=== PATIENT | male | born 1955 | race Caucasian/White ===

== ENCOUNTER 2017-05-28 17:52 | Inpatient (IN) | payer BC ==
[~2017-05-28] VITALS: Ht 182.9 cm; Wt 130.6 kg
[2017-05-28] MEDS ORDERED: HYDROCODONE/APAP 5/325MG 1 EACH TABLET ONE (19:45)
[2017-05-28] MEDS ORDERED: IBUPROFEN 600 MG TABLET PO ONE ×2 (19:46→20:00)
[2017-05-28] MEDS ORDERED: HYDROCODONE/APAP 5/325MG 1 EACH TABLET PO ONE (20:00)
[2017-05-28] MEDS ORDERED: LIDOCAINE 2%-EPI 1:100,000 30 ML VIAL TP ONE (20:00)
[2017-05-28] MEDS ORDERED: LIDOCAINE 1%-EPI 1:100,000 50 ML VIAL IJ ONE (20:11)
--- NOTE | 2017-05-28 20:30 | NUR ---
61 YO MALE, C/O RIGHT KNEE PAIN /P GLF. PT STATES HIS KNEES ANKLE GAVE OUT, WHERE HE FELL ON HIS KNEE. PT ASSISTED TO ER BED, SKIN WARMA ND DRY, RR EVEN AND UNLABORED. AWAITING ORDERS FROM PROVIDER
--- NOTE | 2017-05-28 20:35 | NUR ---
RADIOLOGY TEAM AT BED SIDE FOR EVAL
--- NOTE | 2017-05-28 20:37 | NUR ---
CALLED [employer] MANCILLA, PUBLIC HEALTH AIDE WAS PAGED.
--- NOTE | 2017-05-28 21:24 | NUR ---
PATIENT WILL BE ADMITTED INTO ROOM 307-1.
[2017-05-28] MEDS ORDERED: CEFAZOLIN 1 GM ONE (21:39)
[2017-05-28 21:40] VITALS: BP 155/90
[2017-05-28 21:43] LABS: BASOPHILS # (AUTO) 0.1 /CMM (0.0-0.2); BASOPHILS % (AUTO) 0.6 % (0.0-2.0); EOSINOPHILS # (AUTO) 0.2 /CMM (0.0-0.7); EOSINOPHILS % (AUTO) 1.3 % (0.0-6.0); HEMATOCRIT 47 % (39-51); HEMOGLOBIN 16.2 g/dL (13.5-17.5); LYMPHOCYTES # (AUTO) 3.3 /CMM (0.8-4.8); LYMPHOCYTES % (AUTO) 22.3 % (20.0-44.0); MEAN CORPUSCULAR HEMOGLOBIN 31 PG (26.0-33.0); MEAN CORPUSCULAR HGB CONC 34 g/dl (31.0-36.0); MEAN CORPUSCULAR VOLUME 89 fL (80-96); MONOCYTES # (AUTO) 1.1 /CMM (0.1-1.30); MONOCYTES % (AUTO) 7.4 % (2.0-12.0); NEUTROPHILS # (AUTO) 10.1 /CMM (1.8-8.9); NEUTROPHILS % (AUTO) 68.4 % (43.0-81.0); PLATELET COUNT (AUTO) 289 /CMM (150-450); RDW COEFFICIENT OF VARIATION 12.6 (11.5-15.0); RED BLOOD CELL COUNT(AUTO) 5.29 MIL/uL (4.5-6.0); WHITE BLOOD COUNT (AUTO) 14.8 K/uL (4.3-11.0)
--- NOTE | 2017-05-28 21:44 | NUR ---
CALLED [employer], NUCLEAR CONTROL OPERATOR WAS PAGED.
--- NOTE | 2017-05-28 21:52 | NUR ---
REPORT GIVEN TO ESMER MENDEZ FOR CONTINUATION OF CARE.
[2017-05-28 21:53] LABS: CALCIUM, SERUM 8.7 mg/dL (8.5-10.1); CREATININE 1.2 mg/dL (0.6-1.3); POTASSIUM 4.2 mmol/L (3.5-5.1)
[2017-05-28 21:58] LABS: INR 0.94 (0.87-1.13); PROTHROMBIN TIME 9.8 SECS (9.5-12.7)
[2017-05-28 21:59] LABS: ALBUMIN 4.1 g/dL (3.4-5.0); BILIRUBIN,DIRECT 0.2 mg/dL (0.0-0.2); BILIRUBIN,TOTAL 0.8 mg/dL (0.2-1.0); TOTAL PROTEIN, SERUM 6.9 g/dL (6.4-8.2)
[2017-05-28] MEDS ORDERED: IV NS 0.9% 1,000 ML BAG IV ONE (22:00)
[2017-05-28] MEDS ORDERED: CEFAZOLIN 1 GM in IV D5W 50 ML IV ONE (22:00)
[2017-05-28] MEDS ORDERED: IV NS 0.9% 1,000 ML IV PRN (22:13)
--- NOTE | 2017-05-28 22:24 | NUR ---
PT TRANSFERED TO VIA [facility]
[2017-05-28] MEDS ORDERED: Z GUARD REMEDY 2 OZ OINT TP PRN (22:30)
[2017-05-28] MEDS ORDERED: HYDROCODONE/APAP 5/325MG 1 EACH TABLET PO PRN (22:30)
[2017-05-28] MEDS ORDERED: MAG HYDROX/AL HYDROX/SIMETH 30 ML UDC PO PRN (22:30)
[2017-05-28] MEDS ORDERED: MAGNESIUM HYDROXIDE 30 ML UDC PO PRN (22:30)
[2017-05-28] MEDS ORDERED: ONDANSETRON HCL/PF 4 MG/2 ML VIAL IVP PRN (22:30)
[2017-05-28] MEDS ORDERED: ACETAMINOPHEN 325 MG TABLET PO PRN (22:30)
--- NOTE | 2017-05-28 22:30 | NUR ---
RN MS ADMIT PT ARRIVED ON UNIT, AAOX4 - NO C/O ANY PAIN OR DISCOMFORT. BREATHING NON-LABORED AND EVEN. R LEG IS SPLINTED WITH BANDAGE - NO SIGNS OF BLEEDING. IV INTACT AND PATENT. ORIENTATED TO UNIT AND CALL LIGHT SYSTEM. WILL MONITOR. PER E.R. REPORT DR FLOWERS IS ON THE CASE
[2017-05-29] MEDS ORDERED: HYDROCODONE/APAP 5/325MG 1 EACH TABLET ONE (00:53)
[2017-05-29] MEDS ORDERED: CEFAZOLIN 1 GM ONE (04:52)
[2017-05-29] MEDS: CEFAZOLIN 1 GM in IV D5W 50 ML IV SCH ×3 (05:12→20:49)
--- NOTE | 2017-05-29 06:43 | NUR ---
RN NOTE NO SIGNFICANT CHANGES OVERNIGHT. PT AAOX4, PT RESTING COMFORTABLY IN BED WITH EYES CLOSED. NO S/S OF ANY DISTRESS AT THIS TIME. R LEG SPLINTED WITH BANDAGE - NO BLEEDING NOTED. TOLERATING IV FLUISD WELL. CALL LIGJHT I NREACH. WILL ENDORSE TO DAY SHIFT FOR SELINA.
[2017-05-29 07:07] LABS: BASOPHILS # (AUTO) 0.1 /CMM (0.0-0.2); BASOPHILS % (AUTO) 0.8 % (0.0-2.0); EOSINOPHILS # (AUTO) 0.3 /CMM (0.0-0.7); EOSINOPHILS % (AUTO) 3.2 % (0.0-6.0); HEMATOCRIT 41 % (39-51); HEMOGLOBIN 14.3 g/dL (13.5-17.5); LYMPHOCYTES # (AUTO) 2.5 /CMM (0.8-4.8); LYMPHOCYTES % (AUTO) 26.7 % (20.0-44.0); MEAN CORPUSCULAR HEMOGLOBIN 31 PG (26.0-33.0); MEAN CORPUSCULAR HGB CONC 35 g/dl (31.0-36.0); MEAN CORPUSCULAR VOLUME 89 fL (80-96); MONOCYTES # (AUTO) 1.1 /CMM (0.1-1.30); MONOCYTES % (AUTO) 11.4 % (2.0-12.0); NEUTROPHILS # (AUTO) 5.4 /CMM (1.8-8.9); NEUTROPHILS % (AUTO) 57.9 % (43.0-81.0); PLATELET COUNT (AUTO) 247 /CMM (150-450); RDW COEFFICIENT OF VARIATION 13.5 (11.5-15.0); RED BLOOD CELL COUNT(AUTO) 4.64 MIL/uL (4.5-6.0); WHITE BLOOD COUNT (AUTO) 9.3 K/uL (4.3-11.0)
[2017-05-29 07:36] LABS: CALCIUM, SERUM 8.2 mg/dL (8.5-10.1); CREATININE 1.2 mg/dL (0.6-1.3); MAGNESIUM 2.1 mg/dL (1.8-2.4); PHOSPHORUS 3.2 mg/dL (2.5-4.9); POTASSIUM 4.6 mmol/L (3.5-5.1)
[2017-05-29 08:00] VITALS: BP 130/78
--- NOTE | 2017-05-29 08:00 | NUR ---
MS RN NOTES PATIENT RESTING IN BED, AWAKE. NO DISCOMFORT OR DISTRESS NOTED. IV LINE ON RFA INTACT PATENT. BED IN LOW LOCKED POSITION. CALL LIGHT WITHIN REACH. MONITORING CLOSELY.
[2017-05-29] MEDS: PANTOPRAZOLE 40 MG TABLET.DR PO SCH (08:02)
[2017-05-29] MEDS ORDERED: hydrALAZINE HCL 25 MG TABLET PO PRN (08:30)
[2017-05-29] MEDS: HYDROCODONE/APAP 5/325MG 1 EACH TABLET PO PRN ×3 (08:50→20:49)
--- NOTE | 2017-05-29 10:30 | NUR ---
MS RN NOTES PATIENT LAYING IN BED, C/O PAIN TO RIGHT LEG, PRN NORCO ADMINISTERED & WAS EFFECTIVE. ALL NEEDS MET. MONITORING CLOSELY FOR ANY CHANGE OF CONDITION.
[2017-05-29 10:53] LABS: THYROID STIMULATING HORMONE 2.655 uIU/mL (0.358-3.74)
[2017-05-29] MEDS: VALSARTAN 80 MG TABLET PO SCH (11:41)
--- NOTE | 2017-05-29 14:30 | NUR ---
MS RN NOTES PATIENT RESTING IN BED WITH EYES CLOSED. NO C/O PAIN NOTED. OBSERVING CLOSELY
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
[2017-05-29 16:00] VITALS: BP 136/79
--- NOTE | 2017-05-29 18:45 | NUR ---
MS RN NOTES PATIENT RESTING IN BED, NO C/O PAIN, NO DISTRESS OR DISCOMFORT NOTED. IV LINE ON RFA 20 GAUZE SALINE LOCK, INTACT & PATENT. ALL ORDERED MEDICINES ADMINISTERED PER MD ORDERS. ALL NEEDS MET. CALL LIGHT WITHIN REACH. BED IN LOW LOCKED POSITION. SON AT BEDSIDE AT THIS TIME.WILL ENDORSE TO PM SHIFT.
--- NOTE | 2017-05-29 19:00 | NUR ---
RN MS NOTES RECEIVED PT IN BED, A/O X 4, PATIENT NOT IN ACUTE DISTRESS, IV SITE INTACT NO S/S OF INFILTRATION. CALL LIGHT WITHIN REACH. SAFETY MEASURES IN PLACE, ON LOW BED, WILL CONTINUE TO MONITOR PT.
[2017-05-29 20:00] VITALS: BP 133/76
[2017-05-29 20:04] VITALS: BP 133/76
[2017-05-29] MEDS: ZOLPIDEM TARTRATE 5 MG TABLET PO PRN (20:49)
[2017-05-30] VITALS (9 sets, daily range): BP systolic 128–159; BP diastolic 68–97
[2017-05-30] MEDS: CEFAZOLIN 1 GM in IV D5W 50 ML IV SCH ×3 (04:33→21:42)
--- NOTE | 2017-05-30 06:44 | NUR ---
MS RN CLOSING NOTES PATIENT COMFORTABLY ASLEEP AND EASILY AWAKEN, HEAD OF BED ELEVATED FOR BETTER LUNG EXPANSION AND GOOD CIRCULATION. TOLERATING ROOM AIR 02 SAT 98% MAINTAINS NPO MIDNIGHT FOR PROCEDURE TODAY ON ATB WITH NO A/R NOTED. IV SITE NO S/S OF INFILTRATED PATENT AND FLUSHED, RESPIRATIONS EVEN AND UNLABORED, FREQUENT VISUAL CHECK DONE FOR SAFETY EVERY 2 HOURS. NURSING CARE RENDERED, NEEDS ATTENDED AND ANTICIPATED, KEPT CLEAN AND DRY AND COMFORTABLE, GOOD SKIN CARE PROVIDED. OFFLOAD AT ALL TIMES. SAFE HAZARD FREE ENVIRONMENT PROVIDED. CALL LIGHT WITHIN EASY TO REACH, ON LOW BED AT ALL TIMES TO ENSURE SAFETY, WILL ENDORSE TO THE NEXT SHIFT CONTINUE PLAN OF CARE
[2017-05-30 07:05] LABS: BASOPHILS % (AUTO) 0.4 % (0.0-2.0); EOSINOPHILS # (AUTO) 0.4 /CMM (0.0-0.7); EOSINOPHILS % (AUTO) 3.9 % (0.0-6.0); HEMATOCRIT 45 % (39-51); HEMOGLOBIN 15.5 g/dL (13.5-17.5); LYMPHOCYTES # (AUTO) 2.3 /CMM (0.8-4.8); LYMPHOCYTES % (AUTO) 22.2 % (20.0-44.0); MEAN CORPUSCULAR HEMOGLOBIN 31 PG (26.0-33.0); MEAN CORPUSCULAR HGB CONC 34 g/dl (31.0-36.0); MEAN CORPUSCULAR VOLUME 90 fL (80-96); NEUTROPHILS # (AUTO) 6.5 /CMM (1.8-8.9); NEUTROPHILS % (AUTO) 63.5 % (43.0-81.0); PLATELET COUNT (AUTO) 241 /CMM (150-450); RDW COEFFICIENT OF VARIATION 13.5 (11.5-15.0); RED BLOOD CELL COUNT(AUTO) 5.03 MIL/uL (4.5-6.0); WHITE BLOOD COUNT (AUTO) 10.3 K/uL (4.3-11.0)
[2017-05-30 07:25] LABS: ALBUMIN 3.7 g/dL (3.4-5.0); CALCIUM, SERUM 8.9 mg/dL (8.5-10.1); CREATININE 1.1 mg/dL (0.6-1.3); MAGNESIUM 2.2 mg/dL (1.8-2.4); PHOSPHORUS 3.1 mg/dL (2.5-4.9); POTASSIUM 4.9 mmol/L (3.5-5.1); TOTAL PROTEIN, SERUM 6.9 g/dL (6.4-8.2)
[2017-05-30] MEDS: PANTOPRAZOLE 40 MG TABLET.DR PO SCH (07:30)
--- NOTE | 2017-05-30 07:30 | NUR ---
RN NOTES RECEIVED PATIENT RESTING COMFORTABLY IN BED,AWAKE AND ALERT ABLE TO VERBALIZE NEEDS. RESPIRATIONS EVEN AND UNLABORED, IN NO APPARENT OR DISCOMFORT NO FACIAL GRIMACING. IV SITE ON RIGHT FORE ARM PATENT AND INTACT NO REDNESS OR INFILTRATION NOTED. KEPT CLEAN DRY AND COMFORTABLE, CALL LIGHT WITHIN EASY REACH.
--- NOTE | 2017-05-30 08:28 | NUR ---
rn notes: Patient alert and orientated. NPO taken to OR via bed for scheduled procedure stable condition
[2017-05-30] MEDS ORDERED: MIDAZOLAM HCL 2 MG/2ML VIAL ONE (09:37)
[2017-05-30] MEDS ORDERED: FENTANYL PF 100MCG/2ML AMPUL ONE (09:38)
[2017-05-30] MEDS ORDERED: oxyCODONE/APAP (5/325 MG) 1 UDTAB TABLET PO PRN ×2 (12:30)
[2017-05-30] MEDS: VALSARTAN 80 MG TABLET PO SCH (13:08)
--- NOTE | 2017-05-30 14:49 | NUR ---
RN NOTES: Pack from surgery now 2 hours, Vital signs stable AM Diovan given for his blood pressure. Ate lunch 100%. Voided 400ml in the urinal. Elevated his leg up on 3 pillows. Order for CPM placed. Patient denies pain. Toes warm to touch and capillary refill less then 3 sec.
--- NOTE | 2017-05-30 16:09 | NUR ---
RN Notes: Patient OOB with PT and using a walker, ambulated in the room. Patient indicated no pain or discomfort. Family her to visit.
[2017-05-30] MEDS: HYDROCODONE/APAP 5/325MG 1 EACH TABLET PO PRN (18:39)
--- NOTE | 2017-05-30 18:48 | NUR ---
rn notes: MEDICATED FOR rIGHT LEG PAIN hE STTES AFTER i PLACED IT IN STRAIGHT ALIGNMENT AND PLACED ICE TO THE KNEE THE LEG FELT BETTER. hE MENTIONED THE ACEWRAP IS UNCOMFORTABLEAND IT HURTS HUIM, AND HE IS HOT FROM IT, nORCO TABS 1 GIVEN PO WILL MONITER nORCO ANALGESICS EFFECT.
[2017-05-31 02:19] VITALS: BP 140/79
[2017-05-31] MEDS: HYDROCODONE/APAP 5/325MG 1 EACH TABLET PO PRN ×3 (02:26→21:03)
[2017-05-31] MEDS: CEFAZOLIN 1 GM in IV D5W 50 ML IV SCH ×3 (04:49→21:05)
--- NOTE | 2017-05-31 07:19 | NUR ---
MS/RN NOTES PATIENT STABLE. R LEG BARRETT BANDAGE FROM KNEE TO FOOT, WITH KNEE IMMOBILIZER IN PLACE, +MOVEMENT TO TOES, WARM TO TOUCH. C/O OF PAIN TO AREA, LEVEL 2-10. ADMINISTERED NORCO X2 WITH RELIEF. VOIDING WELL. NO BM OF THIS TIME. ALL NEEDS MET. SIDE TABLE AND CALL ELIZABETH WITHIN REACH. WILL ENDORSE TO AM SHIFT FOR CONTINUITY OF CARE. V/S WNL AND PATIENT STABLE.
--- NOTE | 2017-05-31 07:50 | NUR ---
RN OPEN NOTES RECIEVED REPORT FROM GROUNDS MAINTENANCE SUPERVISOR NURSE. PATIENT IS IN BED, AWAKE. ALERT AND ORIENTED TO NAME, TIME AND PLACE. NO SIGNS AND SYMPTOMS OF RESPIRATORY DISTRESS. PAIN 3/10, DECLINED PAIN MEDS AT THIS TIME. BED ON LOW POSITION, LOCKED AND TWO SIDE RAILS ARE UP. IV SITE TKO; NO SIGNS AND SYMPTOMS OF INFILTRATION, REDNESS, OR SWALLOWING. WILL CONTINUE TO ASSESS AND MONITOR PATIENT THROUGH OUT MY SHIFT
[2017-05-31 08:00] VITALS: BP 154/99
[2017-05-31] MEDS ORDERED: ERGOCALCIFEROL (VITAMIN D 2) 50,000 UNIT CAPSULE PO SCH (08:30)
[2017-05-31] MEDS: PANTOPRAZOLE 40 MG TABLET.DR PO SCH (09:22)
[2017-05-31] MEDS: VALSARTAN 80 MG TABLET PO SCH (09:23)
[2017-05-31] MEDS: HYDROMORPHONE 1 MG/1 ML DISP.SYRIN IV PRN (12:11)
[2017-05-31 16:00] VITALS: BP 146/96
--- NOTE | 2017-05-31 18:51 | NUR ---
RN CLOSING NOTES PATIENT IS ALERT AND ORIENTED TO NAME, PLACE AND TIME. BED IN LOW POSITION, LOCKED AND TWO SIDE RAILS ARE UP. NO SIGNS AND SYMPTOMS OF DISTRESS OR PAIN. PATIENT IS PENDING DISCHARGE UPON FINDING PLACEMENT. PATIENT KEPT CLEAN AND DRY. WILL ENDORSE TO AIRPORT MAINTENANCE LABORER NURSE
[2017-05-31 20:00] VITALS: BP 130/79
[2017-05-31] MEDS: ZOLPIDEM TARTRATE 5 MG TABLET PO PRN (21:04)
[2017-06-01] MEDS: CEFAZOLIN 1 GM in IV D5W 50 ML IV SCH ×2 (04:12→12:42)
--- NOTE | 2017-06-01 06:31 | NUR ---
MS RN CLOSING NOTES PATIENT COMFORTABLY ASLEEP AND EASILY AWAKEN, HEAD OF BED ELEVATED FOR BETTER LUNG EXPANSION AND GOOD CIRCULATION. TOLERATING ROOM AIR 02 SAT 98% ON ATB WITH NO A/R NOTED. IV SITE NO S/S OF INFILTRATED PATENT AND FLUSHED, RESPIRATIONS EVEN AND UNLABORED, FREQUENT VISUAL CHECK DONE FOR SAFETY EVERY 2 HOURS. NURSING CARE RENDERED, NEEDS ATTENDED AND ANTICIPATED, KEPT CLEAN AND DRY AND COMFORTABLE, GOOD SKIN CARE PROVIDED. OFFLOAD AT ALL TIMES. SAFE HAZARD FREE ENVIRONMENT PROVIDED. CALL LIGHT WITHIN EASY TO REACH, ON LOW BED AT ALL TIMES TO ENSURE SAFETY, WILL ENDORSE TO THE NEXT SHIFT CONTINUE PLAN OF CARE
--- NOTE | 2017-06-01 07:15 | NUR ---
RN OPEN NOTES RECEIVED REPORT FROM [employer] TECHNICIAN NURSE. WILL CONTINUE TO ASSESS AND MONITOR PATIENT THROUGH OUT MY SHIFT
[2017-06-01] MEDS: HYDROMORPHONE 1 MG/1 ML DISP.SYRIN IV PRN (07:35)
[2017-06-01 08:00] VITALS: BP 130/87
[2017-06-01 08:57] VITALS: BP 130/87
[2017-06-01] MEDS: VALSARTAN 80 MG TABLET PO SCH (08:57)
[2017-06-01] MEDS: PANTOPRAZOLE 40 MG TABLET.DR PO SCH (08:57)
--- NOTE | 2017-06-01 13:14 | NUR ---
PAGED LORI PECK REGARDING CHANGING THE PATIENT DRESSING PRIOR TO DISCHARGE, LORI WILL BE HERE BEFORE PATIENT BEING DISCHARGE
--- NOTE | 2017-06-01 13:15 | NUR ---
JACOBO PISANO REGARDING MED PETER Addendum: 06/01/17 at 1338 by HAYDE DIAZ RN DR PISANO CALLED BACK. HE WILL BE HERE WITHIN THE HOUR TO COMPLETE THE MED RECON
--- NOTE | 2017-06-01 15:12 | NUR ---
SPOKE TO DR PISANO REGARDING MED RECON. MED RECON COMPLETED.
--- NOTE | 2017-06-01 16:50 | NUR ---
FISH ROE TECHNICIAN NOTES PATIENT'S DISCHARGE HAS BEEN RECEIVED AND CARRIED OUT. PATIENT IS BEING TRANSPORT TO [facility] FOR SELINA IN A STABLE CONDITION. NO SIGNS AND SYMPTOMS OF DISTRESS. MANAGEABLE PAIN LEVEL 2/10 AT TIME OF TRANSPORT. ALL DISCHARGE INSTRUCTION EXPLAINED TO PATIENT AND PATIENT VERBALIZE UNDERSTANDING. AL PERSONAL BELONGINGS WITH PATIENT AT TIME OF DISCHARGE. ALL DISCHARGE FORMS INCLUDING BELONGING FORMS SIGNED BY PATIENT AND PLACED IN THE CHART. REPORT GAVE TO ANDREA BRADY FROM [facility] AT 15:02. IV SITES REMOVED. ID BAND REMOVED. SURGERY SITE PICTURES WERE TAKEN AND PLACED IN THE CHART. PATIENT TRANSPORTED TO [facility] VIA AMBULANCE PROVIDED BY [facility]. 2 patient services specialist OCCUPIED PATIENT.
== END 2017-06-01 16:55 | DRG 493 ==
LOC: ER 17:54 → TELE 21:37 → MED 05-29 01:12
PROVIDERS: ADMIT Internal Medicine; ATTEND Internal Medicine
PROC: 0QSG04Z Reposition Right Tibia with Internal Fixation Device, Open Approach (ICD-10-PCS; principal; 2017-05-30 10:04)
DX: S82.141A Displaced bicondylar fracture of right tibia, initial encounter for closed fracture (principal); E87.0 Hyperosmolality and hypernatremia; W18.30XA Fall on same level, unspecified, initial encounter; Y92.9 Unspecified place or not applicable; Z91.040 Latex allergy status; Z96.643 Presence of artificial hip joint, bilateral; R73.03 Prediabetes; M19.90 Unspecified osteoarthritis, unspecified site; K21.9 Gastro-esophageal reflux disease without esophagitis; I10 Essential (primary) hypertension; G47.33 Obstructive sleep apnea (adult) (pediatric); E66.9 Obesity, unspecified; E78.5 Hyperlipidemia, unspecified; D72.828 Other elevated white blood cell count; J45.20 Mild intermittent asthma, uncomplicated
CPT/HCPCS: 36415; 71010-TC; 73564-TC; 73590-TC; 80048-TC; 80053-TC; 80061-TC; 80076-TC; 82306; 83735-TC; 84100-TC; 84439-TC; 84443-TC; 85025-TC; 85730-TC; 87081-TC; 93307-TC; 97116-TC; 97530-TC; 97760-TC; A4606; A6402; J0690; J1170; J1885; J2250; J2405; J2704; J3010; J3490; J7030; J7050; J7060; Z7610